=== PATIENT | female | born 1955 | race Caucasian/White ===

== ENCOUNTER 2018-12-06 06:46 | Emergency (ER) | payer BC ==
[2018-12-06 06:54] VITALS: BP 164/100; PULSE 78; RESP 18; TEMP 98.7
[2018-12-06] MEDS ORDERED: DIPH,PERTUS(ACELL)TETVAC-LF 0.5 ML VIAL IM ONE (07:06)
--- NOTE | 2018-12-06 07:22 | ED ---
General Adult HPI - General Chief complaint: Skin/Abscess/Foreign Body Stated complaint: Foot Injury Time Seen by Provider: 12/06/18 06:50 Source: patient, family, RN notes reviewed Mode of arrival: ambulatory Limitations: no limitations - History of Present Illness Initial comments: This is a 63-year-old female presents emergency Department complaining of a puncture wound to the right foot. Patient states she stepped on a screw earlier this week. And now the areas a little more tender. Patient states she really comes in for a tetanus shot because she hasn't had one lately. Patient states she's been soaking urine keep it clean. Patient states the area is sore but there is no redness and there is no swelling. Patient doesn't believe there is any foreign body. Patient was not wearing shoes she was barefoot when she stepped on the screw. - Related Data Home Medications Medication Instructions Recorded Confirmed amLODIPine BESYLATE/BENAZEPRIL 1 cap PO DAILY 02/04/16 02/04/16 [Lotrel 10-20 mg Capsule] Previous Rx's Medication Instructions Recorded amLODIPine BESYLATE/BENAZEPRIL 1 cap PO DAILY #30 cap 02/04/16 [Lotrel 10-20 mg Capsule] Allergies Allergy/AdvReac Type Severity Reaction Status Date / Time acetaminophen Allergy Unknown Verified 12/06/18 06:53 [From Darvocet-N 100] meperidine HCl [From Demerol] Allergy Unknown Verified 12/06/18 06:53 morphine Allergy Unknown Verified 12/06/18 06:53 propoxyphene napsylate Allergy Unknown Verified 12/06/18 06:53 [From Darvocet-N 100] Review of Systems ROS Statement: Those systems with pertinent positive or pertinent negative responses have been documented in the HPI. ROS Other: All systems not noted in ROS Statement are negative. Past Medical History Past Medical History: Hyperlipidemia, Hypertension History of Any Multi-Drug Resistant Organisms: None Reported Past Surgical History: Cholecystectomy, Hysterectomy, Joint Replacement Additional Past Surgical History / Comment(s): left knee Past Psychological History: No Psychological Hx Reported Smoking Status: Never smoker Past Alcohol Use History: Occasional Past Drug Use History: None Reported General Exam - General Exam Comments Initial Comments: GENERAL Patient is well-developed and well-nourished. Patient is in mild distress. EYES Patient's pupils are equal and round. Extraocular motion is intact SKIN Unremarkable NEURO The patient is alert and oriented 3 PYSCH Patient has normal interpersonal interactions. MUSCULOSKELETAL Right foot has a puncture wound there is no area of erythema no swelling or fluctuance. The area is slightly tender to palpation. Limitations: no limitations Course Vital Signs 12/06/18 06:49 Temperature 98.7 F Pulse Rate 78 Respiratory 18 Rate Blood Pressure 164/100 O2 Sat by Pulse 97 Oximetry Disposition Clinical Impression: Puncture wound of foot Disposition: HOME SELF-CARE Instructions (If sedation given, give patient instructions): Puncture Wound (ED) Is patient prescribed a controlled substance at d/c from ED?: No Referrals: Portia Constantino MD [Primary Care Provider] - 1-2 days Time of Disposition: 07:28
--- NOTE | 2018-12-06 07:28 | XR ---
EXAMINATION TYPE: XR foot complete RT DATE OF EXAM: 12/06/2018 COMPARISON: NONE HISTORY: Pain TECHNIQUE: Three views are submitted. FINDINGS: The osseous structures are intact. There is no acute fracture or dislocation. Arthropathy first MT P. No metallic foreign body identified.. IMPRESSION: 1. No acute fracture or dislocation. If symptoms persist, follow-up exam in 7 to 10 days could be ob tained.
== END 2018-12-06 07:44 | disposition home or self-care (01) ==
LOC: EC 06:46
DX: S91.331A Puncture wound without foreign body, right foot, initial encounter (principal); I10 Essential (primary) hypertension; Z23 Encounter for immunization; Z79.899 Other long term (current) drug therapy; Z88.5 Allergy status to narcotic agent; Z88.6 Allergy status to analgesic agent; Z96.652 Presence of left artificial knee joint; W22.8XXA Striking against or struck by other objects, initial encounter
CPT/HCPCS: 90471; 90715; 99283